=== PATIENT | male | born 1930 | race Caucasian/White ===

== ENCOUNTER → 2016-08-05 | Outpatient (CLI) | payer MEDICARE, OTHER ==
[~2016-08-05] MED LIST: CALC-52 PO; CLON-241 PO; FINA5TAB2 PO; FISH1CAP59 PO; GLUC1CAP25 PO; PRED1TAB PO; TAMS0.4C20 PO; WARF5TAB69 PO; [UNRECOGNIZED DRUG - CODE] PO
--- NOTE | 2016-08-05 12:10 | DI ---
Indication: ITS.REASON: M62.81 LOWER EXTREMITY WEAKNESS; I77.89 PROCEDURE: US ESTHER: Encounter: Initial Comparison: None Technique: Ankle-brachial indices were performed utilizing dorsalis pedis arteries bilaterally. Findings: The ankle-brachial indices are 0.98 bilaterally, normal values. The normal range is 0.95 and above. Impression: Normal ankle-brachial indices bilaterally. .
== END ==
LOC: IMA 10:40
PROVIDERS: ATTEND Internal Medicine Rheumatology
DX: M62.81 Muscle weakness (generalized) (principal); I77.89 Other specified disorders of arteries and arterioles
CPT/HCPCS: 93922

== ENCOUNTER 2016-09-27 01:10 | Emergency (ER) | payer MEDICARE, OTHER ==
[~2016-09-27] VITALS: Ht 176.5 cm; Wt 86.2 kg
[2016-09-27 01:14] VITALS: TEMP 99.5; Ht 176.5 cm; Wt 86.2 kg
--- NOTE | 2016-09-27 01:14 | NUR ---
PROVIDER DR SILVERIO IN ROOM W/ PT.
--- OUTSIDE RECORDS SUMMARY | 2016-09-27 01:14 | XMS REPORT | Referral Summary ---
Author Author [facility] Organization [facility] Address Unknown Phone Unavailable Care Team Providers Care Crewman [employer] Name Role Phone Lamin Sorensen Primary Care Physician [phone] Encounter VC Date(s): 11/23/14 - 11/23/14 [facility] [address] [place] [address] MARY GRACE Carmona [id number] Discharge Diagnosis: Depression Discharge Diagnosis: AF (atrial fibrillation) Discharge Diagnosis: Neuropathy Discharge Disposition: 01-Home or Self Care Attending Physician: Abdirahman Sorensen MD Vital Signs Most recent to 1 oldest [Reference Range]: Temperature Tympanic 36.4 degC [36.6-38.1 degC] *LOW* (11/23/14 8:46 AM) Peripheral Pulse 61 bpm Rate [60-100 bpm] (11/23/14 8:46 AM) Respiratory Rate 16 br/min [14-20 br/min] (11/23/14 8:46 AM) Blood Pressure 116/78 mmHg [90-140/60-90 mmHg] (11/23/14 8:46 AM) SpO2 97 % (11/23/14 8:46 AM) Problem List Condition Effective Dates Status Health Status Informant Acute Active pain(Confirmed) Allergic Active rhinitis(Confirmed) Hay fever(Confirmed) Active Arthritis(Confirmed) Active Atrial Active fibrillation(Confirm ed) Cataract(Confirmed) Active Disease-skin Active condition(Confirmed) History of BPH with Active prostatism(Confirmed ) History of urinary Active frequency,dribbling, and BPH with prostatism(Confirmed ) Hearing Active loss(Confirmed) Hypertension(Confirm Active ed) Irregular heart Active rhythm(Confirmed) Knowledge Active deficit(Confirmed)1 Pneumonia(Confirmed) Active Polymyalgia(Confirme Active d) 1Problem added automatically by system based on initiation of Knowledge Deficit Plan of Care Allergies, Adverse Reactions, Alerts Substance Reaction Severity Status lisinopril COUGH Active penicillin Pruritus Active Rash rofecoxib Rash Active terbinafine Active Medications Ativan 0.5 mg oral tablet See Instructions, 1/2 tab oral daily for Anixety and Restlessness, 0 Refill(s) Start Date: 11/23/14 Status: Ordered Calcium 600+D 2 tabs, Oral, BID, Patient takes 1 tab in the evening., 0 Refill(s) Start Date: 10/26/14 Status: Ordered Carac 0.5% topical cream 1 hermelinda, Topical, Daily, 0 Refill(s) Start Date: 10/25/14 Status: Ordered clonazePAM 1 mg oral tablet 1 mg 1 tabs, Oral, Bedtime (once a day), Patient needs to schedule medication check appt., # 90 tabs, 0 Refill(s) Start Date: 03/06/15 Stop Date: 06/04/15 Status: Ordered Fish Oil 1,000 mg, Oral, Daily, 0 Refill(s) Start Date: 10/26/14 Status: Ordered glucosamine Oral, Daily, 1 tab, 0 Refill(s) Start Date: 10/26/14 Status: Ordered predniSONE 1 mg oral tablet 2 tabs, Oral, Daily, # 60 tabs, 0 Refill(s) Start Date: 11/16/13 Status: Ordered Proscar 5 mg oral tablet See Instructions, 1 tabs Oral Daily, # 30 tabs, eRx: [id number], 1 tabs Oral Daily Start Date: 04/24/15 Status: Ordered Proscar 5 mg oral tablet See Instructions, 1 tabs Oral Daily, # 30 tabs, eRx: [id number], 1 tabs Oral Daily Start Date: 04/24/15 Status: Ordered Remeron 15 mg oral tablet 7.5 mg 0.5 tabs, Oral, Bedtime (once a day), Take 1/2 tab at bedtime, # 15 tabs , 2 Refill(s), Pharmacy: [facility], 0.5 tabs Oral Bedtime (once a day),Instr:Take 1/2 tab at bedtime Start Date: 11/25/14 Status: Ordered Senokot S 50 mg-8.6 mg oral tablet 1 tabs, Oral, Daily, Constipation, 0 Refill(s) Start Date: 10/31/14 Status: Ordered tamsulosin 0.4 mg oral capsule See Instructions, TAKE ONE CAPSULE BY MOUTH AT BEDTIME, # 90 caps, eRx: [facility], TAKE ONE CAPSULE BY MOUTH AT BEDTIME Start Date: 01/30/15 Status: Ordered Tylenol Extra Strength 1,000 mg, Oral, q8hr, as needed for pain, 0 Refill(s) Start Date: 10/26/14 Status: Ordered warfarin 5 mg oral tablet See Instructions, TAKE 1.5 TABLETS (7.5MG) BY MOUTH ON FRIDAYS AND TAKE 1 TABLET BY MOUTH OTHER 6 DAYS, # 100 tabs, [facility]Rx: [facility], TAKE 1.5 TABLETS (7.5MG) BY MOUTH ON FRIDAYS AND TAKE 1 TABLET BY MOUTH OTHER 6 DAYS Start Date: 04/17/15 Status: Ordered Results No data available for this section Immunizations Vaccine Date Refusal Reason influenza virus vaccine, inactivated 01/24/15 influenza virus vaccine, inactivated 12/28/13 influenza virus vaccine, live 02/08/13 influenza virus vaccine, live 01/23/09 zoster vaccine live 03/07/08 Procedures Procedure Date Related Diagnosis Body Site Hospitalization for evaluation and treatment 2015 of Weakness Cardioversion of atrial fibrillation 2003 Bilateral Inguinal hernia repair 1999 Appendectomy Cataract extraction Colonoscopy Hernia repair Tonsillectomy Vasectomy Social History Social History Type Response Smoking Status Never smoker Assessment and Plan Extracted from: Title: Ambulatory Patient Education Author: Abdirahman Sorensen MD Date: Family Medicine Depression, Adult Depression refers to feeling sad, low, down in the dumps, blue, gloomy, or empty. In general, there are two kinds of depression: 1. Depression that we all experience from time to time because of upsetting life experiences, including the loss of a job or the ending of a relationship ( normal sadness or normal grief). This kind of depression is considered normal, is short lived, and resolves within a few days to 2 weeks. (Depression experienced after the loss of a loved one is called bereavement. Bereavement often lasts longer than 2 weeks but normally gets better with time.) 2. Clinical depression, which lasts longer than normal sadness or normal grief or interferes with your ability to function at home, at work, and in school. It also interferes with your personal relationships. It affects almost every aspect of your life. Clinical depression is an illness. Symptoms of depression also can be caused by conditions other than normal sadness and grief or clinical depression. Examples of these conditions are listed as follows: Physical illnessSome physical illnesses, including underactive thyroid gland (hypothyroidism ), severe anemia, specific types of cancer, diabetes, uncontrolled seizures, heart and lung problems, strokes, and chronic pain are commonly associated with symptoms of depression. Side effects of some prescription medicineIn some people, certain types of prescription medicine can cause symptoms of depression. Substance abuseAbuse of alcohol and illicit drugs can cause symptoms of depression. SYMPTOMS Symptoms of normal sadness and normal grief include the following: Feeling sad or crying for short periods of time. Not caring about anything (apathy ). Difficulty sleeping or sleeping too much. No longer able to enjoy the things you used to enjoy. Desire to be by oneself all the time (social isolation ). Lack of energy or motivation. Difficulty concentrating or remembering. Change in appetite or weight. Restlessness or agitation. Symptoms of clinical depression include the same symptoms of normal sadness or normal grief and also the following symptoms: Feeling sad or crying all the time. Feelings of guilt or worthlessness. Feelings of hopelessness or helplessness. Thoughts of suicide or the desire to harm yourself (suicidal ideation ). Loss of touch with reality (psychotic symptoms ). Seeing or hearing things that are not real (hallucinations ) or having false beliefs about your life or the people around you (delusions and paranoia ). DIAGNOSIS The diagnosis of clinical depression usually is based on the severity and duration of the symptoms. Your caregiver also will ask you questions about your medical history and substance use to find out if physical illness, use of prescription medicine, or substance abuse is causing your depression. Your caregiver also may order blood tests. TREATMENT Typically, normal sadness and normal grief do not require treatment. However, sometimes antidepressant medicine is prescribed for bereavement to ease the depressive symptoms until they resolve. The treatment for clinical depression depends on the severity of your symptoms but typically includes antidepressant medicine, counseling with a mental health professional, or a combination of both. Your caregiver will help to determine what treatment is best for you. Depression caused by physical illness usually goes away with appropriate medical treatment of the illness. If prescription medicine is causing depression , talk with your caregiver about stopping the medicine, decreasing the dose, or substituting another medicine. Depression caused by abuse of alcohol or illicit drugs abuse goes away with abstinence from these substances. Some adults need professional help in order to stop drinking or using drugs. SEEK IMMEDIATE CARE IF: You have thoughts about hurting yourself or others. You lose touch with reality (have psychotic symptoms). You are taking medicine for depression and have a serious side effect. FOR MORE INFORMATION National [place] on Mental Illness: www.dee dee.org National [place] of Mental Health: www.nimh.nih.gov Document Released: 04/25/2001 Document Revised: 10/27/2012 Document Reviewed: ExitCare Patient Information 2014 [employer]. Follow Up With: Where: When: Abdirahman Sorensen [address] [place] [address] Drive; [facility] [place] [id number] Business (1) In 3 months 02/23/2015 Comments: Extracted from: Title: Office Visit Note Author: Abdirahman Sorensen MD Date: 11/23/14 Assessment/Plan AF (atrial fibrillation) He will continue on anticoagulation therapy. Depression He will be placed on Remeron 7.5 mg at bedtime. Neuropathy He will continue to use his walker for ambulation.
--- OUTSIDE RECORDS SUMMARY | 2016-09-27 01:15 | XMS REPORT | Referral Summary ---
Author Author [facility] Organization [facility] Address Unknown Phone Unavailable Care Team Providers Care Suction Operator Name Role Phone Lamin Sorensen Primary Care Physician [phone] Encounter VC Date(s): 11/22/14 - 11/22/14 [facility] [address] [place] [address] MARY GRACE Carmona [id number] Discharge Diagnosis: BPH with obstruction/lower urinary tract symptoms Discharge Disposition: 01-Home or Self Care Attending Physician: Wenceslao Roche JR, MD Admitting Physician: Wenceslao Roche JR, MD Vital Signs Most recent to 1 oldest [Reference Range]: Peripheral Pulse 60 bpm Rate [60-100 bpm] (11/22/14 1:40 PM) Blood Pressure 122/70 mmHg [90-140/60-90 mmHg] (11/22/14 1:40 PM) Problem List Condition Effective Dates Status Health [...] tabs Oral Daily, # 30 tabs, eRx: [facility], 1 tabs Oral Daily Start Date: 04/24/15 Status: Ordered Proscar 5 mg oral tablet See Instructions, 1 tabs Oral Daily, # 30 tabs, eRx: [facility], 1 tabs Oral Daily Start Date: 04/24/15 Status: Ordered Remeron 15 mg oral tablet 7.5 mg 0.5 tabs, Oral, Bedtime (once a day), Take 1/2 tab at bedtime, # 15 tabs , 2 Refill(s), Pharmacy: [facility], 0.5 tabs Oral Bedtime (once a day),Instr:Take 1/2 tab at bedtime Start Date: 11/25/14 Status: Ordered Senokot S 50 mg-8.6 mg oral tablet 1 tabs, Oral, Daily, Constipation, 0 Refill(s) Start Date: 10/31/14 Status: Ordered tamsulosin 0.4 mg oral capsule See Instructions, TAKE ONE CAPSULE BY MOUTH AT BEDTIME, # 90 caps, eRx: [facility], TAKE ONE CAPSULE BY MOUTH AT BEDTIME Start Date: 01/30/15 Status: Ordered Tylenol Extra Strength 1,000 mg, Oral, q8hr, as needed for pain, 0 Refill(s) Start Date: 10/26/14 Status: Ordered warfarin 5 mg oral tablet See Instructions, TAKE 1.5 TABLETS (7.5MG) BY MOUTH ON FRIDAYS AND TAKE 1 TABLET BY MOUTH OTHER 6 DAYS, # 100 tabs, eRx: [facility], TAKE 1.5 TABLETS (7.5MG) BY [...] Extracted from: Title: Ambulatory Patient Education Author: Wenceslao Roche JR, MD Date : 11/22/14 Follow Up With: Where: When: Abdirahmanlatoya Quintero[address]; [place] [address] Business (1) Within 3 to 5 days Comments: Follow Up With: Where: When: Wenceslao [address]; [place], [place] [id number] Business (1) In 6 weeks 01/03/2015 Comments: Extracted from: Title: Office Visit Note Author: Wenceslao Roche JR, MD Date: 11/22/14 Assessment/Plan BPH with obstruction/lower urinary tract symptoms continue finasteride. We will change the tamsulosin to Rapaflo. Recheck in my office in 6 weeks. If the urinary symptoms is not improved by then we will also change the finasteride to Avodart. 15 minute face to face visit with 2/3 of the visit devoted to counseling. Ordered: Office Visit Level 3 Est [id number] Orders: silodosin, 8 mg 1 caps, Oral, Daily, # 90 caps, 0 Refill(s)
--- OUTSIDE RECORDS SUMMARY | 2016-09-27 01:15 | XMS REPORT | Referral Summary ---
Author Author [facility] Organization [facility] Address Unknown Phone Unavailable Care Team Providers Care Campus Supervisor Name Role Phone Lamin Sorensen Primary Care Physician [phone] Encounter VC Date(s): 10/26/14 - 10/31/14 [facility] [address] [place] [address] YW [phone] Final: OTHER MALAISE AND FATIGUE Final: HYPOSMOLALITY AND/OR HYPONATREMIA Final: ATRIAL FIBRILLATION Final: UNSPECIFIED ESSENTIAL HYPERTENSION Final: POLYMYALGIA RHEUMATICA Final: ANEMIA, UNSPECIFIED Final: Hypertrophy (benign) of prostate with urinary obstruction and other lower urinary tract symptoms (LUTS) Final: RETENTION OF URINE, UNSPECIFIED Discharge Disposition: -Care Home Facility Attending Physician: Nj Gonzalez MD Admitting Physician: Regine Sharma MD Vital Signs Most recent to 1 oldest [Reference Range]: Temperature Oral 36.3 degC [35.8-37.3 degC] (10/31/14 12:00 PM) Peripheral Pulse 76 bpm Rate [60-100 bpm] (10/31/14 12:00 PM) Heart Rate Monitored 62 bpm [60-100 bpm] (10/26/14 2:30 PM) Respiratory Rate 18 br/min [14-20 br/min] (10/31/14 12:00 PM) Blood Pressure 137/86 mmHg [90-140/60-90 mmHg] (10/31/14 12:00 PM) Mean Arterial 106 mmHg Pressure, Cuff (10/31/14 4:00 AM) SpO2 96 % (10/31/14 12:00 PM) Problem List Condition Effective Dates Status [...] tabs Oral Daily, # 30 tabs, eRx: [facility], 1 tabs Oral Daily Start Date: 04/24/15 Status: Ordered Proscar 5 mg oral tablet See Instructions, 1 tabs Oral Daily, # 30 tabs, eRx: [facility], 1 tabs Oral Daily Start [...] MOUTH AT BEDTIME, # 90 caps, eRx: [facility], TAKE ONE CAPSULE BY MOUTH AT BEDTIME Start Date: 01/30/15 Status: Ordered Tylenol Extra Strength 1,000 mg, Oral, q8hr, as needed for pain, 0 Refill(s) Start Date: 10/26/14 Status: Ordered warfarin 5 mg oral tablet See Instructions, TAKE 1.5 TABLETS (7.5MG) BY MOUTH ON FRIDAYS AND TAKE 1 TABLET BY MOUTH OTHER 6 DAYS, # 100 tabs, eRx: [facility], TAKE 1.5 TABLETS (7.5MG) BY MOUTH ON FRIDAYS AND TAKE 1 TABLET BY MOUTH OTHER 6 DAYS Start Date: 04/17/15 Status: Ordered Results Hematology Most recent to 1 oldest [Reference Range]: WBC [4.8-10.8 7.6 10*3/uL 10*3/uL] (10/31/14 5:56 AM) RBC [4.60-6.20 3.83 10*6/uL 10*6/uL] *LOW* (10/31/14 5:56 AM) Hgb [14.0-18.0 13.1 gm/dL gm/dL] *LOW* (10/31/14 5:56 AM) Hct [42.0-52.0 %] 37.8 % *LOW* (10/31/14 5:56 AM) MCV [82.0-99.0 fL] 98.7 fL (10/31/14 5:56 AM) MCH [27.0-32.0 pg] 34.2 pg *HI* (10/31/14 5:56 AM) MCHC [32.0-36.0 34.7 gm/dL gm/dL] (10/31/14 5:56 AM) RDW [11.5-14.5 %] 13.5 % (10/31/14 5:56 AM) Platelet [150-400 132 10*3/uL 10*3/uL] *LOW* (10/31/14 5:56 AM) MPV [9.4-12.3 fL] 10.3 fL (10/31/14 5:56 AM) Immature 0.1 % Granulocytes (10/31/14 5:56 AM) [0.0-1.0 %] Neutrophils [51-75 71 % %] (10/31/14 5:56 AM) Lymphocytes [20-46 14 % %] *LOW* (10/31/14 5:56 AM) Monocytes [4-11 %] 12 % *HI* (10/31/14 5:56 AM) Eosinophils [0-4 %] 2 % (10/31/14 5:56 AM) Basophils [0-2 %] 0 % (10/31/14 5:56 AM) Neutro Absolute 5.44 10*3 [1.90-7.00 10*3] (10/31/14 5:56 AM) Lymph Absolute 1.06 10*3 [0.80-3.30 10*3] (10/31/14 5:56 AM) Hall Absolute 0.95 10*3 [0.30-1.00 10*3] (10/31/14 5:56 AM) Eos Absolute 0.18 10*3 [0.00-0.50 10*3] (10/31/14 5:56 AM) Baso Absolute 0.01 10*3 [0.00-0.20 10*3] (10/31/14 5:56 AM) Nucleated RBC 0.0 /100 WBC Automated [0 /100 (10/31/14 5:56 AM) WBC] Sed Rate [0-15 12 mm/hr mm/hr] (10/29/14 7:41 AM) Coagulation Most recent to 1 oldest [Reference Range]: INR [0.9-1.2] 3.3 *HI* (10/31/14 5:56 AM) Chemistry Most recent to 1 oldest [Reference Range]: Sodium Lvl [136-144 134 mEq/L mEq/L] *LOW* (10/31/14 5:56 AM) Potassium Lvl 3.6 mEq/L [3.6-5.1 mEq/L] (10/31/14 5:56 AM) Chloride [99-109 101 mEq/L mEq/L] (10/31/14 5:56 AM) CO2 [22-32 mEq/L] 26 mEq/L (10/31/14 5:56 AM) AGAP [3-20] 7 (10/31/14 5:56 AM) BUN [4-20 mg/dL] 8 mg/dL (10/31/14 5:56 AM) Glucose Lvl [70-100 96 mg/dL mg/dL] (10/31/14 5:56 AM) Creatinine Lvl 0.93 mg/dL [0.64-1.27 mg/dL] (10/31/14 5:56 AM) eGFR [>60] >60 1 (10/31/14 5:56 AM) Calcium Lvl 8.7 mg/dL [8.6-10.0 mg/dL] (10/31/14 5:56 AM) Albumin Lvl [3.5-4.8 3.1 gm/dL gm/dL] *LOW* (10/31/14 5:56 AM) Total Protein 6.2 gm/dL [6.1-7.9 gm/dL] (10/29/14 7:40 AM) Globulin [1.9-4.3 2.9 gm/dL gm/dL] (10/26/14 12:49 PM) ALT [17-63 U/L] 15 U/L *LOW* (10/26/14 12:49 PM) AST [15-41 U/L] 20 U/L (10/26/14 12:49 PM) Alk Phos [26-104 50 U/L U/L] (10/26/14 12:49 PM) Bili Total [0.2-1.2 1.0 mg/dL 2 mg/dL] (10/26/14 12:49 PM) Phosphorus [2.4-4.7 3.1 mg/dL 3 mg/dL] (10/31/14 5:56 AM) Total CK [49-397 54 U/L U/L] (10/29/14 7:40 AM) Troponin [<0.06 <0.05 ng/mL ng/mL] (10/26/14 12:49 PM) Ammonia [9-35 24 mcmol/L mcmol/L] (10/29/14 7:40 AM) Osmolality [275-300 281 mOsm/kg mOsm/kg] (10/29/14 7:41 AM) Vitamin B12 Lvl 508 pg/mL [213-816 pg/mL] (10/26/14 12:49 PM) Folate Lvl [7.0-31.4 11.8 ng/mL ng/mL] (10/26/14 12:49 PM) Blood Glucose, 122 mg/dL Capillary [70-100 *HI* mg/dL] (10/28/14 6:52 PM) TSH with Reflex Free 1.72 T4 [0.35-5.50] (10/26/14 12:49 PM) Hgb A1c [4.1-5.6 %] 5.5 % (10/29/14 7:40 AM) eAvg Glucose 111.2 mg/dL (10/29/14 7:40 AM) Aldolase-[place] [<7.7 4.3 U/L 4 U/L] (10/29/14 7:40 AM) [place] Light 3.60 mg/dL 5 Chains-[place] *HI* (10/29/14 7:40 AM) Lambda FLC-[place] 3.22 mg/dL 6 *HI* (10/29/14 7:40 AM) Sandy/Ch Ratio-[place] 1.12 7 (10/29/14 7:40 AM) 1Result Comment: Multiply eGFR results by 1.21 for race. 2Result Comment: Naproxen, specifically the metabolite O-desmethylnaproxen, may cause spurious elevation in Total Bilirubin levels. 3Result Comment: High dosages of liposomal Amphotericin B (AmBisome) therapy or other drug preparations that use a liposomal envelope to facilitate drug delivery may cause falsely elevated results for phosphorus. 4Result Comment: Test Performed by: [facility] - [address] [address] Telephone Instrument Supervisor: Eladio Momin II, M.D., Ph.D. 5Result Comment: Reference Range: 0.3300-1.94 6Result Comment: Reference Range: 0.5700-2.63 Test Performed by: [place] [address] Telephone Instrument Supervisor: Eladio Momin II, M.D., Ph.D. 7Result Comment: Reference Range: 0.2600-1.65 Test Performed by: [place] [address] Telephone Instrument Supervisor: Eladio Momin II, M.D., Ph.D. Urinalysis Most recent to 1 oldest [Reference Range]: UA Color Lt Yellow (10/26/14 5:22 PM) UA Appear Clear (10/26/14 5:22 PM) UA pH [5.0-8.0] 8.0 (10/26/14 5:22 PM) UA Leuk Est Negative [Negative] (10/26/14 5:22 PM) UA Nitrite Negative [Negative] (10/26/14 5:22 PM) UA Protein Negative [Negative] (10/26/14 5:22 PM) UA Glucose Negative [Negative] (10/26/14 5:22 PM) UA Ketones Negative [Negative] (10/26/14 5:22 PM) UA Urobilinogen Negative [<1.0] (10/26/14 5:22 PM) UA Bili [Negative] Negative (10/26/14 5:22 PM) UA Blood [Negative] Negative (10/26/14 5:22 PM) UA Spec Grav 1.009 [1.003-1.030] (10/26/14 5:22 PM) Type Clean Catch (10/26/14 5:22 PM) Immunizations Vaccine Date Refusal Reason influenza virus [...] Smoking Status Never smoker Assessment and Plan No data available for this section
--- OUTSIDE RECORDS SUMMARY | 2016-09-27 01:15 | XMS REPORT | Referral Summary ---
Author Author [facility] Organization [facility] Address Unknown Phone Unavailable Care Team Providers Care Clerical Assistant Name Role Phone Lamin Sorensen Primary Care Physician [phone] Encounter Date(s): 11/30/14 - 11/30/14 [facility] [address] [place] [address] MARY GRACE Carmona [id number] Discharge Diagnosis: Depression Discharge Diagnosis: Neuropathy Discharge Diagnosis: Fatigue Discharge Disposition: 01-Home or Self Care Attending Physician: Abdirahman Sorensen MD Admitting Physician: Abdirahman Sorensen MD Vital Signs Most recent to 1 oldest [Reference Range]: Temperature Tympanic 36.1 degC [36.6-38.1 degC] *LOW* (11/30/14 3:05 PM) Peripheral Pulse 65 bpm Rate [60-100 bpm] (11/30/14 3:05 PM) Blood Pressure 126/72 mmHg [90-140/60-90 mmHg] (11/30/14 3:05 PM) SpO2 97 % (11/30/14 3:05 PM) Problem List Condition Effective Dates Status [...] MOUTH AT BEDTIME, # 90 caps, eRx: [facility], TAKE ONE CAPSULE BY [...] Patient Education Author: Abdirahman Sorensen MD Date: Follow Up With: Where: When: Abdirahman Quinter[address]; [place] [address] Business (0) Within 3 to 5 days, only if needed Comments: Extracted from: Title: Office Visit Note Author: Abdirahman Sorensen MD Date: 11/30/14 Assessment/Plan Depression He reports feeling better since he has been able to go home. Fatigue Remeron will be held to see if this is a factor with his fatigue. Neuropathy He will continue follow-up with his neurologist. Orders: PT
--- OUTSIDE RECORDS SUMMARY | 2016-09-27 01:15 | XMS REPORT | Referral Summary ---
Author Author [facility] Organization [facility] Address Unknown Phone Unavailable Care Team Providers Care Rn Compliance Name Role Phone Lamin Sorensen Primary Care Physician [phone] Encounter VC Date(s): 10/25/14 - 10/25/14 [facility] [address] [place] [address] MARY GRACE Carmona [id number] Discharge Diagnosis: Adequate anticoagulation on anticoagulant therapy Discharge Diagnosis: Acute bronchitis Discharge Disposition: 01-Home or Self Care Attending Physician: Abdirahman Sorensen MD Admitting Physician: Abdirahman Sorensen MD Vital Signs Most recent to 1 oldest [Reference Range]: Temperature Oral 36.5 degC [35.8-37.3 degC] (10/25/14 10:35 AM) Peripheral Pulse 69 bpm Rate [60-100 bpm] (10/25/14 10:35 AM) Respiratory Rate 16 br/min [14-20 br/min] (10/25/14 10:35 AM) Blood Pressure 115/62 mmHg [90-140/60-90 mmHg] (10/25/14 10:35 AM) SpO2 95 % (10/25/14 10:35 AM) Problem List Condition Effective Dates Status [...] tabs Oral Daily, # 30 tabs, eRx: [id number], 1 tabs Oral Daily Start Date: 04/24/15 Status: Ordered Proscar 5 mg oral tablet See Instructions, 1 tabs Oral Daily, # 30 tabs, eRx: [id number], 1 tabs Oral Daily Start Date: 04/24/15 Status: Ordered Remeron 15 mg oral tablet 7.5 mg 0.5 tabs, Oral, Bedtime (once a day), Take 1/2 tab at bedtime, # 15 tabs , 2 Refill(s), Pharmacy: [facility], 0.5 tabs Oral Bedtime (once a day),Instr:Take 1/2 tab at bedtime Start Date: 11/25/14 Status: Ordered Senokot S 50 mg-8.6 mg oral tablet 1 tabs, Oral, Daily, Constipation, 0 Refill(s) Start Date: 10/31/14 Status: Ordered tamsulosin 0.4 mg oral capsule See Instructions, TAKE ONE CAPSULE BY MOUTH AT BEDTIME, # 90 caps, eRx: [facility], TAKE ONE CAPSULE BY MOUTH AT BEDTIME Start Date: 01/30/15 Status: Ordered Tylenol Extra Strength 1,000 mg, Oral, q8hr, as needed for pain, 0 Refill(s) Start Date: 10/26/14 Status: Ordered warfarin 5 mg oral tablet See Instructions, TAKE 1.5 TABLETS (7.5MG) BY MOUTH ON FRIDAYS AND TAKE 1 TABLET BY MOUTH OTHER 6 DAYS, # 100 tabs, eRx: [facility], TAKE 1.5 TABLETS (7.5MG) BY MOUTH ON FRIDAYS AND TAKE 1 TABLET BY MOUTH OTHER 6 DAYS Start Date: 04/17/15 Status: Ordered Results Coagulation Most recent to 1 oldest [Reference Range]: PT Venous (10/25/14 11:10 AM) INR [0.8-1.2] 2.7 1 *HI* (10/25/14 11:10 AM) 1Result Comment: Normal (no anticoagulant): 0.8 - 1.2 Units Routine Therapeutic Range: 2.0 - 3.0 Units High Risk Therapeutic Range: 2.5 - 3.5 Units Immunizations Vaccine Date Refusal Reason influenza virus vaccine, inactivated 01/24/15 influenza virus vaccine, inactivated 12/28/13 influenza virus vaccine, live 02/08/13 influenza virus vaccine, live 01/23/09 zoster vaccine live 03/07/08 Procedures Procedure Date Related Diagnosis Body Site Hospitalization for evaluation and treatment 2015 [facility] Cardioversion of atrial fibrillation 2003 Bilateral Inguinal hernia repair 1999 Appendectomy Cataract extraction Colonoscopy Hernia repair Tonsillectomy Vasectomy Social History Social History Type Response Smoking Status Never smoker Assessment and Plan Extracted from: Title: Ambulatory Patient Education Author: Abdirahman Sorensen MD Date: Family Medicine Bronchitis Bronchitis is inflammation of the airways that extend from the windpipe into the lungs (bronchi ). The inflammation often causes mucus to develop, which leads to a cough. If the inflammation becomes severe, it may cause shortness of breath. CAUSES Bronchitis may be caused by: Viral infections. Bacteria. Cigarette smoke. Allergens, pollutants, and other irritants. SIGNS AND SYMPTOMS The most common symptom of bronchitis is a frequent cough that produces mucus. Other symptoms include: Fever. Body aches. Chest congestion. Chills. Shortness of breath. Sore throat. DIAGNOSIS Bronchitis is usually diagnosed through a medical history and physical exam. Tests, such as chest X-rays, are sometimes done to rule out other conditions. TREATMENT You may need to avoid contact with whatever caused the problem (smoking, for example). Medicines are sometimes needed. These may include: Antibiotics. These may be prescribed if the condition is caused by bacteria. Cough suppressants. These may be prescribed for relief of cough symptoms. Inhaled medicines. These may be prescribed to help open your airways and make it easier for you to breathe. Steroid medicines. These may be prescribed for those with recurrent ( chronic ) bronchitis. HOME CARE INSTRUCTIONS Get plenty of rest. Drink enough fluids to keep your urine clear or pale yellow (unless you have a medical condition that requires fluid restriction). Increasing fluids may help thin your secretions and will prevent dehydration. Only take [id number] or prescription medicines as directed by your health care provider. Only take antibiotics as directed. Make sure you finish them even if you start to feel better. Avoid secondhand smoke, irritating chemicals, and strong fumes. These will make bronchitis worse. If you are a smoker, quit smoking. Consider using nicotine gum or skin patches to help control withdrawal symptoms. Quitting smoking will help your lungs heal faster. Put a cool-mist humidifier in your bedroom at night to moisten the air. This may help loosen mucus. Change the water in the humidifier daily. You can also run the hot water in your shower and sit in the bathroom with the door closed for 510 minutes. Follow up with your health care provider as directed. Wash your hands frequently to avoid catching bronchitis again or spreading an infection to others. SEEK MEDICAL CARE IF: Your symptoms do not improve after 1 week of treatment. SEEK IMMEDIATE MEDICAL CARE IF: Your fever increases. You have chills. You have chest pain. You have worsening shortness of breath. You have bloody sputum. You faint. You have lightheadedness. You have a severe headache. You vomit repeatedly. MAKE SURE YOU: Understand these instructions. Will watch your condition. Will get help right away if you are not doing well or get worse. Document Released: 04/28/2006 Document Revised: 02/16/2014 Document Reviewed: [employer]Care Patient Information 2014 [employer]. Follow Up With: Where: When: Abdirahman Sorensen [address] [place] [address] Drive; [facility] [place] MARY GRACE [phone] Business (1) Within 3 to 5 days, only if needed Comments: Extracted from: Title: Office Visit Note Author: Abdirahman Sorensen MD Date: 10/25/14 Assessment/Plan Acute bronchitis He will continue his present medication. Adequate anticoagulation on anticoagulant therapy INR will be rechecked today.
--- OUTSIDE RECORDS SUMMARY | 2016-09-27 01:15 | XMS REPORT | Continuity of Care Document ---
Author Author [facility] Organization [facility] Address Unknown Phone Unavailable Allergies Active Description Code Type Severity Reaction Onset Reported/Identified Relationship to Patient Clinical Status Yes No Known Allergies Drug Allergy N/A N/A 03/02/2013 Yes No Known Drug Allergies Drug Allergy N/A N/A 03/02/2013 Yes No Known Food Allergies Food Allergy N/A N/A 03/02/2013 Yes Penicillins Drug Allergy N/A Pruritus 03/02/2013 Yes lisinopril NKMA N/A COUGH 09/08/2013 Yes penicillin NKMA N/A Pruritus Rash 09/08/2013 Yes rofecoxib NKMA N/A Rash 09/08/2013 Yes terbinafine NKMA N/A N/A 09/08/2013 Yes lisinopril NKMA N/A COUGH 09/08/2013 Yes penicillin NKMA N/A Pruritus Rash 09/08/2013 Yes rofecoxib NKMA N/A Rash 09/08/2013 Yes terbinafine NKMA N/A N/A 09/08/2013 Medications Medication Packaging Start Date Stop Date Route Dosage Sig zolpidem(Ambien 5 mg oral tablet) 1 tabs 11/15/2013 11/29/2013 Oral 5 mg 1 tabs, Oral, Bedtime (once a day), PRN: as needed for sleep predniSONE(predniSONE 1 mg oral tablet) tabs 11/15/20132013 Oral mg tabs, Oral, Daily warfarin(warfarin) 11/15/2013 12/06/2013 Daily clonazePAM(clonazePAM 1 mg oral tablet) 1 tabs 11/15/201311/15 Oral 1 mg 1 tabs, Oral, Daily clonazePAM(clonazePAM 1 mg oral tablet) 1 tabs 11/15/201305/10 Oral 1 mg 1 tabs, Oral, Bedtime (once a day), 90 tabs zolpidem(Ambien 5 mg oral tablet) 1 tabs 11/29/2013 08/02/2014 Oral 5 mg 1 tabs, Oral, Bedtime (once a day), rx must last 30 days, 30 tabs, PRN : as needed for sleep warfarin(warfarin 5 mg oral tablet) 1 tabs 12/06/20132013 Oral 5 mg 1 tabs, Oral, Daily, 100 tabs warfarin(warfarin 5 mg oral tablet) 12/06/2013 06/06/2014 See Instructions, TAKE 7.5MG ON FRIDAYS AND 5MG ON 6 OTHER DAYS., 100 tabs tamsulosin(tamsulosin 0.4 mg oral capsule) 01/11/20142014 See Instructions, TAKE ONE CAPSULE BY MOUTH AT BEDTIME, 90 caps clonazePAM(clonazePAM 1 mg oral tablet) 1 tabs 05/10/201408/08 Oral 1 mg 1 tabs, Oral, Bedtime (once a day), 90 tabs cefdinir(cefdinir 300 mg oral capsule) 2 caps 10/25/20142014 Oral 600 mg 600 mg=2 caps, Oral, q24hr, Started 10/22/14 x7 days, 0 Refill(s ) fluorouracil topical(Carac 0.5% topical cream) 1 hermelinda 10/25/2014 07/11/2016 Topical 1 hermelinda, Topical, Daily, 0 Refill(s) tamsulosin(tamsulosin) 10/26/2014 11/22/2014 Oral 0.4 mg 0.4 mg , Oral, Bedtime (once a day), 0 Refill(s) warfarin(warfarin) 10/26/2014 11/04/2014 Oral 7.5 mg 7.5 mg, Oral, Friday, 0 Refill(s) glucosamine(glucosamine) 10/26/2014 Oral Oral, Daily, 1 tab, 0 Refill(s) Sodium Chloride 0.9%(Sodium Chloride 0.9% 1,000 mL) 1,000 mL 10/26/2014 10/27/2014 IV 100 mL/hr, IV predniSONE(predniSONE) 2 tabs 10/26/2014 10/31/2014 Oral 2 mg 2 mg=2 tabs, Oral, Daily tamsulosin(tamsulosin) 1 caps 10/26/2014 10/31/2014 Oral 0.4 mg 0.4 mg=1 caps, Oral, Bedtime (once a day) cefdinir(cefdinir) 2 caps 10/26/2014 10/27/2014 Oral 600 mg 600 mg=2 caps, Oral, q24hr zolpidem(Ambien) 1 tabs 10/26/2014 10/31/2014 Oral 5 mg 5 mg=1 tabs, Oral, Bedtime (once a day), PRN: Sleep warfarin(warfarin) 1 tabs 10/26/2014 10/31/2014 Oral 5 mg 5 mg=1 tabs, Oral, Fri/////Sa ondansetron(Zofran) 2 mL 10/26/2014 10/31/2014 IV Push 4 mg 4 mg= 2 mL, IV Push, q6hr, PRN: Nausea enoxaparin(Lovenox) 0.4 mL 10/26/2014 10/27/2014 SubCutaneous 40 mg 40 mg=0.4 mL, SubCutaneous, Bedtime (once a day) acetaminophen(acetaminophen) 2 tabs 10/26/2014 10/31/2014 Oral 650 mg 650 mg=2 tabs, Oral, q4hr, PRN: Other (See Comment) docusate-senna(Senokot S 50 mg-8.6 mg oral tablet) 1 tabs 10/26/2014 10/31/2014 Oral 1 tabs, Oral, Daily, PRN: Constipation phenol topical(Cepastat) 1 lozenges 10/29/2014 10/31/2014 Oral 1 lozenges, Oral, q2hr, PRN: Sore Throat docusate-senna(Senokot S 50 mg-8.6 mg oral tablet) 1 tabs 10/31/2014 07/11/2016 Oral 1 tabs, Oral, Daily, PRN: Constipation, 0 Refill(s) tamsulosin(tamsulosin 0.4 mg oral capsule) 11/14/20142014 See Instructions, TAKE ONE CAPSULE BY MOUTH AT BEDTIME, 90 caps silodosin(Rapaflo 8 mg oral capsule) 1 caps 11/22/20142014 Oral 8 mg 8 mg=1 caps, Oral, Daily, 90 caps, 0 Refill(s) warfarin(warfarin 7.5 mg oral tablet) 11/23/2014 04/17/2015 See Instructions, 1 tab oral on Friday, 0 Refill(s) LORazepam(Ativan 0.5 mg oral tablet) 11/23/2014 07/11/2016 See Instructions, 1/2 tab oral daily for Anixety and Restlessness, 0 Refill(s) predniSONE(predniSONE 1 mg oral tablet) 2 tabs 07/11/2016 Oral 2 mg 2 mg=2 tabs, Oral, Daily, 180 tabs, 1 Refill(s) Problems Date Dx Coded Attending Type Code Diagnosis Diagnosed By 03/02/2013 Jas Otto MD Final 427.31 ATRIAL FIBRILLATION 03/02/2013 Jas Otto MD Final 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 03/02/2013 Jas Otto MD Final 530.81 ESOPHAGEAL REFLUX 03/02/2013 Jas Otto MD Final 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 03/02/2013 Jas Otto MD Admitting 780.79 MALAISE FATIGUE NEC 10/26/2014 Nj Gonzalez MD Admitting 427.31 11/04/2014 Nj Gonzalez MD Final 276.1 HYPOSMOLALITY AND/OR HYPONATREMIA 11/04/2014 Nj Gonzalez MD Final 285.9 ANEMIA, UNSPECIFIED 11/04/2014 Nj Gonzalez MD Final 401.9 UNSPECIFIED ESSENTIAL HYPERTENSION 11/04/2014 Nj Gonzalez MD Final 427.31 ATRIAL FIBRILLATION 11/04/2014 Nj Gonzalez MD Final 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 Visit Date/Time Discharge Status Pt. Type Provider Facility Loc./Unit Complaint [id number] 03/02/2013 12:33:00 2012 18:38:00 DIS Inpatient Jas Otto MD [facility] on [place] [place] [id number]
--- OUTSIDE RECORDS SUMMARY | 2016-09-27 01:15 | XMS REPORT ---
Author Author [facility], [facility] - Organization Unknown Address Unknown Phone Unavailable Allergies, Adverse Reactions, Alerts * Penicillins causes Pruritus. * No Latex Allergy. * No IV Contrast Allergy. * No Known Food Allergies. Problems * Breathing Pattern Impairment* Status:Resolved. * Infection* Status:Active. * Pneumonia* Status:Active. Procedures No relevant procedures performed. Medication It is the responsibility of the patient or patient software support representative to confirm the list of medications with either the patient's personal care provider or the patient's follow-up care provider to ensure the patient has an appropriate list of medications to take at home. Discharge medications* predniSONE 1 mg Tablet, Ordered By: Jas Sharma Directions: 2 tablet oral daily * warfarin 5 mg Tablet, Ordered By: Jas Chevy Sharma Directions: 1 tablet oral every Friday, Friday, Friday, , Friday, and Friday with lunch * warfarin 5 mg Tablet, Ordered By: Jas K Radhalapsammie Sharma Directions: 1.5 tablet oral every Friday with lunch * clonazePAM 1 mg Tablet, Ordered By: Jasyessy Sharma Directions: 1 tablet oral daily at bedtime * cefUROXime axetil (CefTIN) 500 mg Tablet, Ordered By: Jsayessy Sharma Directions: 1 tablet oral twice a day Additional Instructions: for 1 week * Follow up with Abdirahman Sorensen MD in 1 week * Reguler Diet Stopped medications* Calcium with Vitamin D Tablet 1 oral three times daily Last Taken at home: 03/02/2013 AM Results LAB--CHEMISTRY from 03/03/2013 5:32 AMAnion Gap 7 (3-20 ) Albumin 3.4 g/dL L (3.5-4.8 g/dL) Alkaline Phosphatase 43 U/L (26-104 U/L) ALT (SGPT) 14 U/L L (17-63 U/L) AST (SGOT) 25 U/L (15-41 U/L) Bilirubin Total 1.1 mg/dL (0.2-1.2 mg/dL) BUN 11 mg/dL (4-20 mg/dL) Calcium 8.9 mg/dL (8.6-10.0 mg/dL) Chloride 103 mEq/L (99-109 mEq/L) CO2 27 mEq/L (22-32 mEq/L) Creatinine 0.95 mg/dL (0.64-1.27 mg/dL) eGFR >60 (>60- ) Globulin 3.0 g/dL (1.9-4.3 g/dL) Glucose 99 mg/dL (70-100 mg/dL) Potassium 4.0 mEq/L (3.6-5.1 mEq/L) Sodium 137 mEq/L (136-144 mEq/L) Protein 6.4 g/dL (6.1-7.9 g/dL) LAB--COAG STUDIES from 03/03/2013 5:32 AMINR 1.9 H (0.9-1.2 ) LAB--COAG STUDIES from 03/04/2013 5:44 AMINR 1.5 H (0.9-1.2 ) LAB--HEMATOLOGY from 03/03/2013 5:32 AMAbsolute Basophils 0.01 THOUS (0.00-0.20 THOUS) Absolute Eosinophils 0.15 THOUS (0.00-0.50 THOUS) Absolute Lymphocytes 0.82 THOUS (0.80-3.30 THOUS) Absolute Monocytes 0.87 THOUS (0.30-1.00 THOUS) Absolute Neutrophils 5.27 THOUS (1.90-7.00 THOUS) HCT 40.4 % L (42.0-52.0 %) HGB 14.0 g/dl (14.0-18.0 g/dl) MCH 34.0 pg H (27.0-32.0 pg) MCHC 34.7 g/dL (32.0-36.0 g/dL) MCV 98.1 fL (82.0-99.0 fL) MPV 11.0 fL (9.4-12.3 fL) Platelet Count 126 K/uL L (150-400 K/uL) RBC 4.12 M/uL L (4.60-6.20 M/uL) RDW 13.8 % (11.5-14.5 %) WBC 7.1 K/uL (4.8-10.8 K/uL) Basophils 0 % (0-2 %) Eosinophils 2 % (0-4 %) Immature Granulocytes 0.1 % (0.0-1.0 %) Lymphocytes 12 % L (20-46 %) Monocytes 12 % H (4-11 %) Nucleated RBC Automated 0.0 /100 WBC (0 /100 WBC) Neutrophils 74 % (51-75 %) LAB--HEMATOLOGY from 03/04/2013 5:44 AMHCT 38.6 % L (42.0-52.0 %) HGB 13.3 g/dl L (14.0-18.0 g/dl) MCH 33.8 pg H (27.0-32.0 pg) MCHC 34.5 g/dL (32.0-36.0 g/dL) MCV 98.2 fL (82.0-99.0 fL) MPV 10.9 fL (9.4-12.3 fL) Platelet Count 119 K/uL L (150-400 K/uL) RBC 3.93 M/uL L (4.60-6.20 M/uL) RDW 14.0 % (11.5-14.5 %) WBC 5.4 K/uL (4.8-10.8 K/uL)
--- OUTSIDE RECORDS SUMMARY | 2016-09-27 01:15 | XMS REPORT | Referral Summary ---
Author Author [facility] Organization [facility] Address Unknown Phone Unavailable Care Team Providers Care Information Engineer Name Role Phone Lamin Sorensen Primary Care Physician [phone] Encounter VC Date(s): 11/04/14 - 11/04/14 [facility] [address] [place] [address] MARY GRACE Carm[place] [id number] Discharge Diagnosis: AF (atrial fibrillation) Discharge Diagnosis: Adequate anticoagulation on anticoagulant therapy Discharge Diagnosis: Neuropathy Discharge Disposition: 01-Home or Self Care Attending Physician: Abdirahman Sorensen MD Admitting Physician: Abdirahman Sorensen MD Vital Signs Most recent to 1 oldest [Reference Range]: Temperature Tympanic 36.5 degC [36.6-38.1 degC] *LOW* (11/04/14 1:05 PM) Peripheral Pulse 76 bpm Rate [60-100 bpm] (11/04/14 1:05 PM) Blood Pressure 124/84 mmHg [90-140/60-90 mmHg] (11/04/14 1:05 PM) SpO2 97 % (11/04/14 1:05 PM) Problem List Condition Effective Dates Status [...] tabs Oral Daily, # 30 tabs, eRx: [facility], 1 tabs Oral Daily Start Date: 04/24/15 Status: Ordered Proscar 5 mg oral tablet See Instructions, 1 tabs Oral Daily, # 30 tabs, eRx: [facility], 1 tabs Oral Daily Start Date: 04/24/15 Status: Ordered Remeron 15 mg oral tablet 7.5 mg 0.5 tabs, Oral, Bedtime (once a day), Take 1/2 tab at bedtime, # 15 tabs , 2 Refill(s), Pharmacy: [facility], 0.5 tabs Oral Bedtime (once a day),Instr:Take 1/2 tab at bedtime Start Date: 11/25/14 Status: Ordered Senokot S 50 mg-8.6 mg oral tablet 1 tabs, Oral, Daily, Constipation, 0 Refill(s) Start Date: 10/31/14 Status: Ordered tamsulosin 0.4 mg oral capsule See Instructions, TAKE ONE CAPSULE BY MOUTH AT BEDTIME, # 90 caps, eRx: [facility], TAKE ONE CAPSULE BY MOUTH AT BEDTIME Start Date: 01/30/15 Status: Ordered Tylenol Extra Strength 1,000 mg, Oral, q8hr, as needed for pain, 0 Refill(s) Start Date: 10/26/14 Status: Ordered warfarin 5 mg oral tablet See Instructions, TAKE 1.5 TABLETS (7.5MG) BY MOUTH ON FRIDAYS AND TAKE 1 TABLET BY MOUTH OTHER 6 DAYS, # 100 tabs, eRx: [facility], TAKE 1.5 TABLETS (7.5MG) BY [...] Hospitalization for evaluation and treatment 2015 of [facility] Cardioversion of atrial fibrillation 2003 Bilateral Inguinal hernia repair 1999 Appendectomy Cataract extraction Colonoscopy Hernia repair Tonsillectomy Vasectomy Social History Social History Type Response Smoking Status Never smoker Assessment and Plan Extracted from: Title: Ambulatory Patient Education Author: Abdirahman Sorensen MD Date: Family Medicine Viral Infections A viral infection can be caused by different types of viruses.Most viral infections are not serious and resolve on their own. However, some infections may cause severe symptoms and may lead to further complications. SYMPTOMS Viruses can frequently cause: Minor sore throat. Aches and pains. Headaches. Runny nose. Different types of rashes. Watery eyes. Tiredness. Cough. Loss of appetite. Gastrointestinal infections, resulting in nausea, vomiting, and diarrhea. These symptoms do not respond to antibiotics because the infection is not caused by bacteria. However, you might catch a bacterial infection following the viral infection. This is sometimes called a "superinfection." Symptoms of such a bacterial infection may include: Worsening sore throat with pus and difficulty swallowing. Swollen neck glands. Chills and a high or persistent fever. Severe headache. Tenderness over the sinuses. Persistent overall ill feeling (malaise ), muscle aches, and tiredness ( fatigue ). Persistent cough. Yellow, green, or brown mucus production with coughing. HOME CARE INSTRUCTIONS Only take [id number]-lhyonbu or prescription medicines for pain, discomfort, diarrhea, or fever as directed by your caregiver. Drink enough water and fluids to keep your urine clear or pale yellow. Sports drinks can provide valuable electrolytes, sugars, and hydration. Get plenty of rest and maintain proper nutrition. Soups and broths with crackers or rice are fine. SEEK IMMEDIATE MEDICAL CARE IF: You have severe headaches, shortness of breath, chest pain, neck pain, or an unusual rash. You have uncontrolled vomiting, diarrhea, or you are unable to keep down fluids. You or your child has an oral temperature above 102 F (38.9 C), not controlled by medicine. Your baby is older than 3 months with a rectal temperature of 102 F (38.9 C) or higher. Your baby is 3 months old or younger with a rectal temperature of 100.4 F (38 C) or higher. MAKE SURE YOU: Understand these instructions. Will watch your condition. Will get help right away if you are not doing well or get worse. Document Released: 02/05/2006 Document Revised: 07/20/2012 Document Reviewed: [facility] Patient Information 2014 [employer]. Follow Up With: Where: When: Abdirahman Sorensen [address] [place] [address] Drive; [address] [place], [place] [id number] [place] (1) In 2 months 01/04/2015 Comments: Extracted from: Title: Office Visit Note Author: Abdirahman Sorensen MD Date: 11/04/14 Assessment/Plan Adequate anticoagulation on anticoagulant therapy He'll continue on pro times as scheduled. AF (atrial fibrillation) This remains well controlled. He will continue his same medication. Neuropathy Neurology consultation and nerve conduction studies will be requested from Dr. Bowers.
--- OUTSIDE RECORDS SUMMARY | 2016-09-27 01:15 | XMS REPORT | Referral Summary ---
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 and other lower urinary tract symptoms (LUTS) Final: RETENTION OF URINE, UNSPECIFIED Discharge Disposition: -Shelter Facility Attending Physician: Nj Gonzalez MD Admitting [...] tabs Oral Daily, # 30 tabs, eRx: [facility], 1 tabs Oral Daily Start Date: 04/24/15 Status: Ordered Proscar 5 mg oral tablet See Instructions, 1 tabs Oral Daily, # 30 tabs, eRx: [facility], 1 tabs Oral Daily Start Date: 04/24/15 Status: Ordered Remeron 15 mg oral tablet 7.5 mg 0.5 tabs, Oral, Bedtime (once a day), Take 1/2 tab at bedtime, # 15 tabs , 2 Refill(s), Pharmacy: [facility], 0.5 tabs Oral Bedtime (once a day),Instr:Take 1/2 tab at bedtime Start Date: 11/25/14 Status: Ordered Senokot S 50 mg-8.6 mg oral tablet 1 tabs, Oral, Daily, Constipation, 0 Refill(s) Start Date: 10/31/14 Status: Ordered tamsulosin 0.4 mg oral capsule See Instructions, TAKE ONE CAPSULE BY MOUTH AT BEDTIME, # 90 caps, eRx: [facility], TAKE ONE CAPSULE BY MOUTH AT BEDTIME Start Date: 01/30/15 Status: Ordered Tylenol Extra Strength 1,000 mg, Oral, q8hr, as needed for pain, 0 Refill(s) Start Date: 10/26/14 Status: Ordered warfarin 5 mg oral tablet See Instructions, TAKE 1.5 TABLETS (7.5MG) BY MOUTH ON FRIDAYS AND TAKE 1 TABLET BY MOUTH OTHER 6 DAYS, # 100 tabs, eRx: [facility], TAKE 1.5 TABLETS (7.5MG) [...] 1.06 10*3 [0.80-3.30 10*3] (10/31/14 5:56 AM) [place] Absolute 0.95 10*3 [0.30-1.00 10*3] (10/31/14 5:56 [...] eAvg Glucose 111.2 mg/dL (10/29/14 7:40 AM) Aldolase[place] [<7.7 4.3 U/L 4 U/L] (10/29/14 7:40 AM) [place] Light 3.60 mg/dL 5 Chains[place] *HI* (10/29/14 7:40 AM) Lambda FLC[place] 3.22 mg/dL 6 *HI* (10/29/14 7:40 AM) Sandy/Ch Ratio[place] 1.12 7 (10/29/14 7:40 AM) 1Result Comment: [...] for phosphorus. 4Result Comment: Test Performed by: [facility] - [address] [address] Materials Buyer: Eladio Momin II, M.D., Ph.D. 5Result Comment: Reference Range: 0.3300-1.94 6Result Comment: Reference Range: 0.5700-2.63 Test Performed by: [place] [address] Materials Buyer: Eladio Momin II, M.D., Ph.D. 7Result Comment: Reference Range: 0.2600-1.65 Test Performed by: [place] [address] Materials Buyer: Eladio Momin II, M.D., Ph.D. Urinalysis Most [...]
--- OUTSIDE RECORDS SUMMARY | 2016-09-27 01:15 | XMS REPORT | Continuity of Care Document ---
Author Author [facility] Organization [facility] Address Unknown Phone Unavailable Support Name Relationship Address Phone AURELIANO JORGE MD Caregiver [address] [place] [address] [place] [address] Unavailable Jaison GOODRICH MD Caregiver [address] [place] [address] Unavailable JAIME SCRUGGS Next Of Kin [address] [place] [address] Insurance Providers Guarantor Carley Scruggs Address [address] [place] [address] Email DENIED/NO TO PT PORT Payer Direct Hit Select Plan 65 Policy Number [id number] Subscriber's Name Carley Scruggs Relationship 18 Self Group Number [id number] Effective Date 08 Payer Medicare Policy Number [id number] Subscriber's Name Carley Scruggs Relationship 18 Self Effective Date 94 Advance Directives Directive Response Recorded Date/Time Advanced Directives Type DNR Documentation 09/26/15 11:34am Chief Complaint and Reason for Visit Chief Complaint Fall Reason for Visit Skin tear of elbow without complication Fall as cause of accidental injury in home as place of occurrence Weakness Problems Active Problems Medical Problem Onset Date Status Acute bronchitis Unknown Acute Altered Mental Status Unknown Acute Past Problems Medical Problem Onset Date Fall as cause of accidental injury in home as place of occurrence Unknown Skin tear of elbow without complication Unknown Weakness Unknown Medications Current Home Medications Medication Dose Units Route Directions Days Qty Instructions Start Date Calcium Carbonate (Calcium) Unknown Strength Tablet 2 Tab Oral Daily 09/26/15 Clonazepam 1 Mg Tablet 1 Mg Oral Daily 10/08/12 Finasteride (Proscar) 5 Mg Tablet 5 Mg Oral Daily 09/26/15 Fish Oil/Dha/Epa (Fish Oil 1,200 Mg Fish Oil) 1 Each Capsule 1 Each Oral Daily 10/08/12 Glucosa Bear 2KCL/Chondroitin Bear (Glucosamine & Chondroitin Cap) 1 Cap Capsule 2 Cap Oral Daily 10/08/12 Prednisone 1 Mg Tablet 2 Mg Oral Daily 09/26/15 Tamsulosin Hcl (Flomax) 0.4 Mg Cap.sr.24h 0.4 Mg Oral Bedtime Warfarin Sodium 5 Mg Tablet 5 Mg Oral Daily 10/08/12 Zolpidem Tartrate 5 Mg Tablet 5 Mg Oral As Needed 03/10/13 Past Home Medications Medication Directions Ordered Status Cefuroxime Axetil (Cefuroxime) 500 Mg Tablet, 500 Mg Oral Twice A Day Discontinued Multivitamins (Multivitamin) 1 Tab Tablet, 1 Tab Oral Daily 10/08/12 Discontinued Social History Social History Problem Response Recorded Date/Time Onset Date Status Chewing Tobacco Status No 03/10/2013 8:25pm Not Applicable Not Applicable Hx Substance Use No 09/26/2015 11:34am Not Applicable Not Applicable Hx Alcohol Use No 09/26/2015 11:34am Not Applicable Not Applicable Has the pt used tobacco in the last 12 months No 10/08/2012 12:55pm Not Applicable Not Applicable Tobacco Usage none 10/22/2014 7:28am Not Applicable Not Applicable Query Response Start Date Stop Date Smoking Status Never smoker Hospital Discharge Instructions No hospital discharge instructions. Plan of Care Discharge Date 09/26/15 2:07pm Disposition 01 DISCHARGED HOME, SELF-CARE Condition at Discharge Stable Instructions/Education Provided DI for Laceration Repair Steri-Strips DI for Contusion How to Prevent Falls Prescriptions See Medication Section Referrals Jaison GOODRICH MD Address: [place] [address] [facility] Order Date: 1 Week Additional Instructions/Education Home to rest today. Call your doctor to set up a follow up appointment regarding your ongoing neuropathy/weakness. Let the steri strips fall off on their own. Care Plan and Goals Physician Care Plan Problem: fall, right elbow skin tear, chronic weakness, neuropathy Goal: Follow up with primary care provider Instructions: Take medications and follow care plan as discussed/written Functional Status No functional status results. Allergies, Adverse Reactions, Alerts Allergen Type Severity Reaction Status Last Updated Penicillin Allergy Unknown Active 09/26/15 Rofecoxib Allergy Unknown Active 09/26/15 Immunizations Query Response on File Recorded Date/Time Hx Influenza Vaccination Y 2013 10/22/14 5:10am Hx Pneumococcal Vaccination Y UNKNOWN WHEN RECEIVED 10/22/14 5:10am Hx Influenza Vaccination Y 2013 10/22/14 5:10am Hx Tetanus Toxoid Vaccination Y 200709/26/15 11:34am Pneumococcal PCV13 Vaccine Hx 200709/26/15 11:34am Tetanus Diptheria Vaccine History 200709/26/15 11:34am Vital Signs Acute Vital Signs Vital Response Date/Time Temperature (Fahrenheit) 97.6 deg F (96.8 - 99.1) 09/26/2015 2:07pm Temperature (Calculated Celsius) 36.70907 degrees C (36.0 - 37.3) 09/26/2015 2:07pm Pulse Rate (adult) 68 bpm (60 - 100) 09/26/2015 2:07pm Respiratory Rate 16 breaths/min (10 - 20) 09/26/2015 2:07pm O2 Sat by Pulse Oximetry 96 % (90 - 100) 09/26/2015 2:07pm Blood Pressure 136/76 mm Hg 09/26/2015 2:07pm Height (Feet) 5 feet 09/26/2015 11:34am Height (Inches) 10.00 inches 09/26/2015 11:34am Weight (Kilograms) 82.500 kg 09/26/2015 11:34am Body Mass Index (BMI) 26.0 09/26/2015 11:34am Results Laboratory Results Test Name Result Units Flags Reference Collection Date/Time Result Date/ Time Comments White Blood Count 3.8 T/MM3 L 4.5-11.0 09/26/2015 12:22pm 09/26/2015 12: 37pm Red Blood Count 4.11 M/MM3 L 4.50-5.90 09/26/2015 12:22pm 09/26/2015 12: 37pm Hemoglobin 14.1 GM/DL 13.5-17.5 09/26/2015 12:22pm 09/26/2015 12:37pm Hematocrit 41.4 % 41-53 09/26/2015 12:22pm 09/26/2015 12:37pm Mean Corpuscular Volume 100.7 UM3 H 80-100 09/26/2015 12:22pm 2015 12:37pm Mean Corpuscular Hemoglobin 34.3 UUG H 26-34 09/26/2015 12:22pm 2015 12:37pm Mean Corpuscular Hemoglobin Concent 34.1 GM/DL 31-37 09/26/2015 12:09/26/2015 12:37pm RDW Standard Deviation 47.7 FL 36.9-50.2 09/26/2015 12:09/26/2015 12:37pm Platelet Count 112 T/MM3 L 130-400 09/26/2015 12:09/26/2015 12: 37pm Mean Platelet Volume 10.9 UM3 9.4-12.4 09/26/2015 12:09/26/2015 12 :37pm Neutrophils (%) (Auto) 69.9 % H 33-66 09/26/2015 12:09/26/2015 12: 37pm Lymphocytes (%) (Auto) 20.6 % L 23-45 09/26/2015 12:09/26/2015 12: 37pm Monocytes (%) (Auto) 7.9 % 0-9.0 09/26/2015 12:09/26/2015 12:37pm Eosinophils (%) (Auto) 1.3 % 0-4 09/26/2015 12:09/26/2015 12:37pm Basophils (%) (Auto) 0.3 % 0-2 09/26/2015 12:09/26/2015 12:37pm Immature Granulocyte % (Auto) 0.0 % 0.0-0.5 09/26/2015 12:2015 12:37pm Absolute Neutrophils (auto) 2.7 T/MM3 1.8-7.7 09/26/2015 12:2015 12:37pm Absolute Lymphocytes (auto) 0.8 T/MM3 L 1-4.8 09/26/2015 12:2015 12:37pm Absolute Monocytes (auto) 0.3 T/MM3 0-0.8 09/26/2015 12:2015 12:37pm Absolute Eosinophils (auto) 0.1 T/MM3 0-0.5 09/26/2015 12:2015 12:37pm Absolute Basophils (auto) 0.0 T/MM3 0-0.2 09/26/2015 12:2015 12:37pm Absolute Immature Granulocyte (auto 0.00 T/MM3 0.00-0.03 09/26/2015 12: 09/26/2015 12:37pm Prothromb Time International Ratio 2.12 H 0.81-1.09 09/26/2015 12:09/26/2015 12:46pm THERAPUTIC RANGE=2.00-3.00 FOR ANTI-THROMBOSIS THERAPUTIC RANGE=2.50-3.50 FOR IMPLANTED VALVE Icterus Index < 2 0-7 09/26/2015 12:09/26/2015 12:51pm Chemistry Specimen Hemolysis < 15 0-25 09/26/2015 12:09/26/2015 12:51pm 0-25: Specimen Exhibited No Hemolysis. Turbidity < 20 0-20 09/26/2015 12:09/26/2015 12:51pm Sodium Level 137 MEQ/L 134-144 09/26/2015 12:09/26/2015 12:51pm Potassium Level 4.1 MEQ/L 3.6-5 09/26/2015 12:09/26/2015 12:51pm Chloride Level 101 MEQ/L 98-107 09/26/2015 12:09/26/2015 12:51pm Carbon Dioxide Level 26 MEQ/L 22-30 09/26/2015 12:09/26/2015 12: 51pm Anion Gap 10 MEQ/L 5-15 09/26/2015 12:09/26/2015 12:51pm Blood Urea Nitrogen 18.0 MG/DL 9-09/26/2015 12:09/26/2015 12: 51pm Creatinine 1.0 MG/DL 0.8-1.5 09/26/2015 12:09/26/2015 12:51pm BUN/Creatinine Ratio 18 RATIO 6-26 09/26/2015 12:09/26/2015 12: 51pm Glomerular Filtration Rate Calc 71 09/26/2015 12:09/26/2015 12 :51pm Glucose Level 105 MG/DL 75-110 09/26/2015 12:09/26/2015 12:51pm Calculated Osmolality 266 MOSM/KG 261-280 09/26/2015 12:2015 12:51pm Calcium Level 9.4 MG/DL 8.4-10.2 09/26/2015 12:09/26/2015 12:51pm Total Bilirubin 1.00 MG/DL 0.20-1.30 09/26/2015 12:09/26/2015 12: 51pm Alkaline Phosphatase 62 U/L 38-126 09/26/2015 12:09/26/2015 12: 51pm Total Protein 6.7 G/DL 6.3-8.2 09/26/2015 12:09/26/2015 12:51pm Albumin 3.8 G/DL 3.5-5.0 09/26/2015 12:09/26/2015 12:51pm Globulin 2.9 G/DL 2.4-3.6 09/26/2015 12:09/26/2015 12:51pm Albumin/Globulin Ratio 1.3 RATIO 1.1-2.2 09/26/2015 12:09/26/2015 12:51pm Aspartate Amino Transf (AST/SGOT) 24 U/L 17-59 09/26/2015 12:09/25 12:51pm Alanine Aminotransferase (ALT/SGPT) 18 U/L L 21-72 09/26/2015 12: 12:51pm Troponin I < 0.012 ng/ml 0-0.12 09/26/2015 12:09/26/2015 1:03pm Troponin values with a difference of 55% increase from orginal troponin value represent a true biological DELTA value. (%increase Calc=Orginal Troponin value, divided by subsequent Troponin value, multiplied by 100) Name: CARLEY SCRUGGS Unit #: [id number] : 1930 Sex: M Admit Date: Loc / Svc: ED Discharge Date: DIAGNOSTIC IMAGING REPORT Report #: [id number] [facility] MARY GRACE Watkins Indication: ITS.REASON: fall, on coumadin PROCEDURE: CT CERVICAL SPINE W/O CONTRAST: Encounter: Initial Comparison: None Technique: Axial CT images through the cervical spine were performed without contrast. Coronal and sagittal reformatted images were also obtained. FINDINGS: The alignment of the cervical spine is normal. Multilevel degenerative changes are present. There is no evidence of acute fracture or subluxation of the cervical spine. The atlantoaxial articulation, dens, and upper cervical spine demonstrate no subluxation. Chronic appearing left maxillary sinusitis. Mild bilateral foraminal stenosis at C6-C7. IMPRESSION: No acute traumatic abnormality of the cervical spine. . Procedures No known history of procedures. Encounters Encounter Location Arrival/Admit Date Discharge/Depart Date Attending Provider Departed Emergency Room [facility] 09/26/15 11:34am 09/26/15 2: 07pm AURELIANO JORGE MD Recent Diagnosis
[2016-09-27] MEDS ORDERED: NORMAL SALINE 1,000 ML IV ONE (01:30)
--- NOTE | 2016-09-27 01:30 | ERPDOC ---
Departure Disposition Decision Date: September 27, 2016 Disposition Decision Time: 03:21 Disposition: 01 DISCHARGED HOME, SELF-CARE Impression Impression Impression: Primary Impression: Fall as cause of accidental injury in home as place of occurrence Encounter type: initial encounter Qualified Codes: W19.XXXA - Unspecified fall, initial encounter; Y92.009 - Unspecified place in unspecified non- institutional (private) residence as the place of occurrence of the external cause Additional Impression: Weakness Severity: Moderate Condition: Stable Seen By: Physician only Referrals: Jaison GOODRICH MD (Family) Follow-up with Dr. Goodrich for reevaluation and continued evaluation of your weakness Patient Instructions: Weakness (ED) Problems/Meds/Labs Reviewed?: Yes Medications reviewed and manag: Yes Additional Instructions: Please remember to use your walker when you get up at night to go to the bathroom Follow up care ordered?: Yes Mental Status: Alert, Oriented HPI - General Medical General Stated Complaint: FELL SMALL ABRASION Time Seen by Provider: 01:24 Source: patient, EMS, EMS notes reviewed, old records Exam Limitations: dementia HPI - General Medical Initial Comments Patient is an 85-year-old male presents emergency room for evaluation of fall, weakness. Patient brought in by EMS, did not come with him. Per report patient is been having increasing weakness for the last 24 hours got up to go to the bathroom tonight and was unable to make it to the bathroom and fell to the floor. Patient did not lose consciousness says he did not strike his head, is currently on Coumadin for atrial fibrillation. Patient has a skin tear to his left elbow. Patient brought to the ER for evaluation. Occurred At: home Onset: Rapid Duration: 1 hr Allergies: Coded Allergies: Penicillins (Unverified Allergy, Unknown, 09/26/15) rofecoxib (Unverified Allergy, Unknown, 09/26/15) Past History Past Medical History Cardiac: A-fib Respiratory: pneumonia Male: BPH Neurological: neuropathy Musculoskeletal: other Surgical History General: appendix, hernia, other Family History Family PMH: FOUND: other Vaccines Hx Influenza Vaccination: Yes (2013) Hx Pneumococcal Vaccination: Yes (UNKNOWN WHEN RECEIVED ) Social History Smoking Status: Never smoker Substance Use Type: does not use Alcohol Intake: none Sexuality: female partner Review of Systems Constitutional Constitutional: DENIES: appetite decrease, chills, dizziness, fever, weakness Eyes Vision: DENIES: double vision, loss of visual conley ENMT Sinuses: DENIES: congestion, rhinorrhea Mouth/Throat: DENIES: scratchy throat, sore throat Cardiovascular Cardiac: DENIES: chest pain, dyspnea on exertion Pulmonary Respiratory: DENIES: cough, dyspnea, sputum, tachypnea GI Upper Abdomen: DENIES: nausea, pain, vomiting Lower Abdomen: DENIES: constipation, diarrhea, pain General: DENIES: frequency, urgency Musculoskeletal General: DENIES: cramps, pain, weakness Integumentary Skin: DENIES: color change, itching, rash Neurological General: weakness (generalized nonspecific), DENIES: headache, numbness Hematologic/Lymphatic Hematologic/Lymphatic: DENIES: anemia Physical Exam General General Nourishment: well nourished, well developed General Body Habitus: well groomed Vitals and Pain First Documented Vital Signs Date Time Temp Pulse Resp B/P Pulse Ox O2 Delivery O2 Flow Rate FiO2 09/27/16 01:14 99.5 77 15 147/84 92 Room Air Weight: Kilograms: Height (feet): 5 Height (inches): 10.00 Triage Pain Scale: RN VS reviewed by Provider: Yes Eyes (brief) Eyes Brief: found: EOMI ENMT (brief) ENMT Brief: FOUND: mucosa moist, normal dentition, NOT FOUND: nasal erythema, pharnyx erythema, tonsillar deviation Neck (brief) Neck: NOT FOUND: adenopathy, spasm, tenderness Respiratory (brief) Respiratory: FOUND: clear all conley, equal bilaterally, NOT FOUND: rales, wheezes Cardiovascular (brief) Cardiac: FOUND: regular rate, NOT FOUND: regular rhythm (irregular) Capillary Refill: <2 sec Abdomen (brief) Abdominal Brief: FOUND: bowel normo active x4, soft, NOT FOUND: distended, tender Lymphatic (brief) Lymphatic Brief: NOT FOUND: adenopathy Musculoskeletal (brief) Musculoskeletal Brief: NOT FOUND: spasm, tenderness Integumentary (brief) Integumentary Brief: FOUND: dry, pink, warm, NOT FOUND: rash Neurologic Mental Status: FOUND: alert, oriented GCS Adult : GCS Eye Opening: (4)Spontaneous GCS Verbal: (4)Confused (apparent baseline) GCS Motor: (6)Obeys Commands GCS Total: 14 Cranial Nerves: FOUND: other (cranial nerves II through:) Motor : Motor Side: bilateral Motor Location: biceps, triceps, wrist, finger extensors, finger flexors, quadriceps, hamstring, foot extension, foot flexion, bar turner strength Motor Degree: 5 Sensation: FOUND: soft touch intact x4 ext DTR's : DTR Side: bilateral DTR Location: Biceps, Patellar DTR Grade: 2+ Psychiatric (brief) Psychiatric Brief: FOUND: alert, NOT FOUND: oriented (at baseline, mildly confused however appropriate) Differential Diagnoses Considering: CVA, Depression, Hypo/Hyperglycemia, Hypo/Hyperkalemia, Hypo/ Hypernatremia, Intracranial Hemorrhage, Medication Effect, Metabolic, Pneumonia , TIA, UTI Progress Results/Orders Orders Procedure Category Date Status Time EKG EKG 09/27/16 Logged 01:24 Iv Lock (Ed Only) EDM 09/27/16 Transmitted 01:24 Cbc W/Auto LAB 09/27/16 Complete Diff-Reflex Manual 01:24 Cmp - Comprehensive LAB 09/27/16 Complete Metabolic 01:24 Troponin I W LAB 09/27/16 Complete Hemolysis Index 01:24 Chest 1 View RAD 09/27/16 Taken 01:24 Ct Head W/O Contrast CT 09/27/16 Taken 01:24 INR LAB 09/27/16 Complete 01:24 Normal Saline (Normal PHA 09/27/16 Complete Saline Iv) 01:30 UA, LAB 09/27/16 Complete Dip&Micro(Complete) & 02:58 Lab Results Laboratory Tests Test 09/27/16 01:40 09/27/16 02:58 White Blood Count 4.6T/MM3 Red Blood Count 3.71M/MM3 Hemoglobin 12.9GM/DL Hematocrit 37.6% Mean Corpuscular Volume 101.3UM3 Mean Corpuscular Hemoglobin 34.8UUG Mean Corpuscular Hemoglobin Concent 34.3GM/DL RDW Standard Deviation 49.8FL Platelet Count 86T/MM3 Mean Platelet Volume 11.2UM3 Immature Granulocyte % (Auto) 0.2% Neutrophils (%) (Auto) 68.7% Lymphocytes (%) (Auto) 15.3% Monocytes (%) (Auto) 13.6% Eosinophils (%) (Auto) 2.2% Basophils (%) (Auto) 0.0% Absolute Immature Granulocyte (auto 0.01T/MM3 Absolute Neutrophils (auto) 3.1T/MM3 Absolute Lymphocytes (auto) 0.7T/MM3 Absolute Monocytes (auto) 0.6T/MM3 Absolute Eosinophils (auto) 0.1T/MM3 Absolute Basophils (auto) 0.0T/MM3 Prothromb Time International Ratio 2.29 Turbidity < 20 Sodium Level 142MEQ/L Potassium Level 4.2MEQ/L Chloride Level 106MEQ/L Carbon Dioxide Level 23MEQ/L Anion Gap 13MEQ/L Blood Urea Nitrogen 20.0MG/DL Creatinine 0.9MG/DL Glomerular Filtration Rate Calc 80 BUN/Creatinine Ratio 22RATIO Glucose Level 101MG/DL Calculated Osmolality 276MOSM/KG Calcium Level 8.9MG/DL Total Bilirubin 0.90MG/DL Icterus Index < 2 Aspartate Amino Transf (AST/SGOT) 32U/L Alanine Aminotransferase (ALT/SGPT) 47U/L Alkaline Phosphatase 88U/L Troponin I < 0.012ng/ml Total Protein 6.5G/DL Albumin 3.8G/DL Globulin 2.7G/DL Albumin/Globulin Ratio 1.4RATIO Chemistry Specimen Hemolysis < 15 Urine Collection Type Voided-not cc-midstr Urine Color Yellow Urine Turbidity Clear Urine pH 5.0 Urine Specific [place] 1.020 Urine Protein Negative Urine Glucose (UA) Negative Urine Ketones Negative Urine Blood 1+ Urine Nitrite Negative Urine Bilirubin Negative Urine Urobilinogen 0.2EU/DL Urine Leukocyte Esterase Negative Urine RBC 5-10/HPF Urine WBC None seen/HPF Urine Bacteria None seen Urine Culture Indicated Cult not indicated Medications Current ED Medications Sodium Chloride (Normal Saline IV) 1,000 ml @ 999 mls/hr Q1H1M ONCE IV Last administered on 09/27/16t 02:00; Start 09/27/16 at 01:30; Stop 09/27/16 at 02:30 ; Status DC Progress Progress Have reviewed patient's chart patient has been having symptoms of weakness for 2 years now multiple prior visits and evaluations. Patient's laboratories CT scan chest x-ray EKG are all noncontributory. Patient does have a mildly low platelet count, however this is chronic for the last year. Patient was able to get up and ambulate with a walker without assistance, we'll discharge patient home follow-up with PCP EKG EKG : Rate: 60-100 Rhythm: atrial fibrillation [place]: normal QRS: normal Intervals: normal ST/T: non-specific changes Interpreted by: signing physician Xray Xray : Xray: CXR Portable Interpretation: Normal, Interpreted by Me (chronic changes, no acute findings) CT CT : CT: Head no contrast Interpretation: Normal, Faxed Report CORKY SILVERIO MD September 27, 2016 01:30
--- OUTSIDE RECORDS SUMMARY | 2016-09-27 01:33 | XMS REPORT ---
Author Author [facility] - Organization Unknown Address Unknown Phone Unavailable Allergies, Adverse Reactions, Alerts * Penicillins causes Pruritus. * No Latex Allergy. * No IV Contrast Allergy. * No Known Food Allergies. Problems * Breathing Pattern Impairment* Status:Resolved. * Infection* Status:Active. * Pneumonia* Status:Active. Procedures No relevant procedures performed. Medication It is the responsibility of the patient or patient retail representative to confirm the list of medications [...] axetil (CefTIN) 500 mg Tablet, Ordered By: Jasyessy Sharma Directions: 1 tablet oral twice a [...]
--- OUTSIDE RECORDS SUMMARY | 2016-09-27 01:33 | XMS REPORT | Continuity of Care Document ---
Author Author [facility] Organization [facility] Address Unknown Phone Unavailable Allergies Active Description [...] Status Pt. Type Provider Facility Loc./Unit Complaint [id number] 03/02/2013 12:33:00 2012 18:38:00 DIS Inpatient Jas Otto MD [facility] on [address] [id number]
--- NOTE | 2016-09-27 02:01 | NUR ---
CT SCAN AND XRAY PT GONE TO XRAY VIA CART.
[2016-09-27 02:03] LABS: EOSINOPHILS # (AUTO) 0.1 T/MM3 (0-0.5); EOSINOPHILS % (AUTO) 2.2 % (0-4); HCT - HEMATOCRIT 37.6 % (41-53); HGB - HEMOGLOBIN 12.9 GM/DL (13.5-17.5); IMMATURE GRANULOCYTE # (AUTO) 0.01 T/MM3 (0.00-0.03); IMMATURE GRANULOCYTE % (AUTO) 0.2 % (0.0-0.5); LYMPHOCYTES # (AUTO) 0.7 T/MM3 (1-4.8); LYMPHOCYTES % (AUTO) 15.3 % (23-45); MEAN CORPUSCULAR HGB 34.8 UUG (26-34); MEAN CORPUSCULAR HGB CONC(MCHC 34.3 GM/DL (31-37); MEAN CORPUSCULAR VOLUME 101.3 UM3 (80-100); MEAN PLATELET VOLUME 11.2 UM3 (9.4-12.4); MONOCYTES # (AUTO) 0.6 T/MM3 (0-0.8); MONOCYTES % (AUTO) 13.6 % (0-9.0); NEUTROPHILS #(AUTO)-ABSOLUTE 3.1 T/MM3 (1.8-7.7); NEUTROPHILS % (AUTO) 68.7 % (33-66); RED BLOOD COUNT 3.71 M/MM3 (4.50-5.90); WBC - WHITE BLOOD COUNT 4.6 T/MM3 (4.5-11.0)
[2016-09-27 02:14] LABS: ALBUMIN 3.8 G/DL (3.5-5.0); ALBUMIN/GLOBULIN RATIO 1.4 RATIO (1.1-2.2); ALKALINE PHOSPHATASE 88 U/L (38-126); ALT (SGPT) 47 U/L (21-72); ANION GAP 13 MEQ/L (5-15); AST (SGOT) 32 U/L (17-59); BUN/CREATININE RATIO 22 RATIO (6-26); CALCIUM 8.9 MG/DL (8.4-10.2); CHLORIDE 106 MEQ/L (98-107); CO2 - CARBON DIOXIDE 23 MEQ/L (22-30); CREATININE 0.9 MG/DL (0.8-1.5); GLOMERULAR FILTRATION RATE 80; GLUCOSE 101 MG/DL (75-110); POTASSIUM 4.2 MEQ/L (3.6-5); SODIUM 142 MEQ/L (134-144); TOTAL PROTEIN 6.5 G/DL (6.3-8.2)
[2016-09-27 02:19] LABS: INR 2.29 (0.77-1.03)
--- NOTE | 2016-09-27 02:36 | NUR ---
XRAY PT BACK FROM XRAY [facility]IA [facility]ART.
[2016-09-27 03:03] LABS: BLOOD, URINE 1+ (NEGATIVE); COLOR,URINE YELLOW (YELLOW); LEUKOCYTE ESTERASE ,URINE NEGATIVE (NEGATIVE); NITRITE,URINE NEGATIVE (NEGATIVE); UROBILINOGEN,URINE 0.2 EU/DL (NORMAL)
[2016-09-27 03:10] LABS: BACTERIA,URINE NONE SEEN (NEGATIVE); WBC,URINE NONE SEEN /HPF (0-5)
--- NOTE | 2016-09-27 03:40 | NUR ---
WALKER AND PT AMBULATORY PT DEMONSTRATED AMBULATORY W/ WALKER W/O CHANGE W/O FALL. PT LEFT ER VIA WHEEL CHAIR TO P.O.V. ALERT VS CHARTED AND NO ACUTE DISTRESS.
[2016-09-27 03:48] VITALS: BP 147/82; PULSE 63; RESP 20; O2SAT 95
--- NOTE | 2016-09-27 03:50 | NUR ---
DISCHARGE PT GIVEN INSTRUCTIONS FOR CONT CARE WEAKNESS W/ FOLLOWUP AND SIGNED W/ FULL KNOWLEDGE OF CONTENT, PT LEFT ER ALERT, VS CHARTED IN NO ACUTE DISTRESS.
--- NOTE | 2016-09-27 08:32 | DI ---
Indication: ITS.REASON: weakness cardiac eval PROCEDURE: CHEST 1 VIEW: Encounter: Initial Comparison: October 22, 2014 Findings: Slightly increased pulmonary vascular markings. No focal consolidative pneumonia. No pleural effusion or pneumothorax. Cardiac silhouette and mediastinal contours are stable. Impression: Mild pulmonary vascular congestion without focal pneumonia. .
--- NOTE | 2016-09-27 09:27 | DI ---
Indication: ITS.REASON: weakness, fall question hit head PROCEDURE: CT HEAD W/O CONTRAST: Encounter: Initial Comparison: September 26, 2015 Technique: Axial CT images through the head were performed without contrast. Iterative Reconstruction dose reducing technique was utilized. FINDINGS: Moderate atrophy. The ventricles are dilated but unchanged. There are scattered areas of low attenuation in the white matter which most likely represent changes from chronic microvascular ischemia. The brainstem, cerebellum, and cerebral hemispheres otherwise have a normal morphology and CT attenuation. There is no evidence of midline displacement. No hemorrhage, signs of acute territorial stroke, mass effect, mass lesions, or edema is evident. The visualized portions of the skull base, midface, and calvarium demonstrate no abnormality. The paranasal sinuses are well aerated and free of significant disease. The tympanic and mastoid cavities appear normal. IMPRESSION: No acute intracranial abnormality or hemorrhage. There is a preliminary report by [facility]. .
== END 2016-09-27 03:50 | disposition home or self-care (01) ==
LOC: ED 01:10
DX: S51.012A Laceration without foreign body of left elbow, initial encounter (principal); R53.1 Weakness; Z79.01 Long term (current) use of anticoagulants; W18.39XA Other fall on same level, initial encounter; Y93.89 Activity, other specified; Y92.009 Unspecified place in unspecified non-institutional (private) residence as the place of occurrence of the external cause; Y99.8 Other external cause status
CPT/HCPCS: 51701; 70450; 71010; 80053; 81001; 84484; 85025; 85610; 93005; 96360; 99284; J7030